=== PATIENT | female | born 1995 | race Caucasian/White ===

== ENCOUNTER 2020-04-14 08:28 | Outpatient (CLI) | payer BC, SELFPAY ==
[2020-04-20 18:59] LABS: SARS-CoV-2 RNA Undetected (Undetected); SARS-CoV-2 Specimen Source Nasopharynx
== END 2020-04-14 08:48 ==
PROVIDERS: Visit Provider Nurse Practitioner Family
DX: Z11.59 Encounter for screening for other viral diseases (principal)
CPT/HCPCS: U0003

== ENCOUNTER 2020-05-04 00:27 | Emergency (ER) | payer BC, SELFPAY ==
[2020-05-04 00:37] VITALS: BP 116/77; PULSE 74; RESP 20; TEMP 36.8; O2SAT 97
--- NOTE | 2020-05-04 00:48 | W.ED.GENAD ---
Discharge Plan Disposition Patient Disposition: HOME Condition: Stable Discharge Details Chief Complaint: Allergic Clinical Impression: Pharyngitis Primary Care Provider: [place],[facility] ED Provider: Antonino Dawson Home Meds and New Rx's Prescriptions: Continued oxcarbazepine 150 mg Tablet 150 mg PO BID RF: 0 venlafaxine 37.5 mg Capsule,Extended Release 24hr 37.5 mg PO DAILY RF: 0 fexofenadine-pseudoephedrine 180-240 mg Tablet Extended Release 24 Hr 1 tab PO QAM PRNRF: 0 Discontinued sumatriptan succinate 25 mg Tablet 25 mg PO DAILY PRN PRNRF: 0 Discharge Instructions Instructions: Pharyngitis (ED) Additional Instructions: discuss with your primary care provider a different medication for migraines if you develop inability to swallow liquids, difficulty breathing or feel more ill return to the emergency department Medical Decision Making 24 yo female comes in with sore throat starting this past evening. She states she took for the first time sumatriptan for miraine that is chronic for her. She then developed the sore throat. No fevers, dyspnea, dysphagia. She has no rashes, no drooling speaking in full sentences. She Has clear lungs, no rashes, soft abdomen, midline uvula and does have mild erythema of posterior pharynx. No pain over hyoid or restricted neck movements, no findings to suggest rpa, captain/airline pilot or epiglotitis. Suspect she could have pharyngitis will check for strep. Per uptodate there is 3% of patients that develop sore throat with imitrex so advised to stop this and discuss with pcp another migraine med. strep negative, will d/c home with return precautions Differential Diagnosis Differential Diagnosis: med reaction, strep vs viral pharyngitis HPI General Mode of arrival: ambulatory. Date/Time Provider Initiated Documentation: 05/04/20 00:28. Limitations to Documentation: no limitations. Information obtained by: patient. History of Present Illness 24 year old F presents to the emergency department with the chief complaint of sore throat, described as moderate, Patient started experiencing this hour(s) (5) and it has been constant. No relieving factors improve symptom(s), No exacerbating factors reported . Patient did receive the following treatments prior to arrival, none Related Data Home Medications Medication Instructions Recorded Confirmed fexofenadine-pseudoephedrine 1 tab PO QAM PRN 05/04/20 05/04/20 oxcarbazepine 150 mg PO BID 05/04/20 05/04/20 venlafaxine 37.5 mg PO DAILY 05/04/20 05/04/20 Allergies Allergy/AdvReac Type Severity Reaction Status Date / Time amoxicillin Allergy Intermediate Skin Rash Unverified 05/04/20 00:42 Penicillins Allergy Intermediate Swelling/Ed Unverified 05/04/20 00:42 hola General Stated Complaint: Allergic JOHN PAUL: 4 Review of Systems All systems reviewed & are unremarkable except as noted in HPI and below Constitutional Constitutional: Denies chills and Denies fever(s) ENT Ears, Nose, Mouth, and Throat: Denies change in voice Cardiovascular Cardiovascular: Denies chest pain and Denies dyspnea Respiratory Respiratory: Denies cough and Denies dyspnea Gastrointestinal Gastrointestinal: Denies abdominal pain, Denies nausea and Denies vomiting Musculoskeletal Musculoskeletal: Denies joint swelling Integumentary/Breasts Skin/Breast: Denies rash PFSH Social History Smoking/Tobacco Use Status: Never Alcohol Intake: never Drug use: Never Substance use type: does not use Do you feel safe at home: Yes Do you feel safe in your relationship?: Yes Exam Const General: no acute distress Orientation: alert HENMT Head: normal to inspection Ears: external ears normal General nose exam: external nose normal Mouth: moist mucous membranes Eyes General: appearance normal, both eyes and all related structures Neck Neck: normal visual inspection Resp Effort & Inspection: normal respiratory effort and able to speak in complete sentences Cardio Rate: regular rate Skin General skin exam: no rashes or lesions noted Neuro General: patient alert and patient oriented x3 Extrem General: normal to inspection Psych Mental Status: mental status grossly normal Course Vital Signs Vital signs: Vital Signs Temperature 36.8 C 05/04/20 00:37 Pulse 74 05/04/20 00:37 Respiratory Rate 20 05/04/20 00:37 Blood Pressure 116/77 05/04/20 00:37 Pulse Oximetry 97 05/04/20 00:37 Temperature 36.8 C 05/04/20 00:37 Temperature Source Oral 05/04/20 00:37 Pulse 74 05/04/20 00:37 Respiratory Rate 20 05/04/20 00:37 Respiratory Effort 05/04/20 00:45 Respiratory Pattern Normal 05/04/20 00:45 Blood Pressure 116/77 05/04/20 00:37 Pulse Oximetry 97 05/04/20 00:37 Oxygen Delivery Method Room Air 05/04/20 00:37 Oxygen Flow Rate 0 05/04/20 00:37 Pain Level 0 05/04/20 00:37
[2020-05-04] MEDS: Dexamethasone 10 MG/ML VIAL PO (01:04)
== END 2020-05-04 01:05 | disposition home or self-care (01) ==
PROVIDERS: Emergency Provider Emergency Medicine
DX: J02.9 Acute pharyngitis, unspecified (principal)
CPT/HCPCS: 87880; 99283; 87081; J1100